=== PATIENT | male | born 1980 ===

== ENCOUNTER 2024-12-18 02:22 | Observation (INO) | payer BC ==
[2024-12-18] MEDS: Aluminum Hydroxide/Magnesium Hydroxide/Simethicone Susp 30 ML Cup PO ONE ×2 (02:38→03:23)
[2024-12-18] MEDS: Lidocaine 2% Viscous Solution 15 ML UD PO ONE ×2 (02:38→03:22)
[2024-12-18] MEDS: Sodium Chloride 0.9% 10 ML Syringe FLUSH PRN (03:11)
[2024-12-18] MEDS: Ondansetron 4 MG/2 ML SDV IVPUSH ONE (03:11)
[2024-12-18 03:28] LABS: BASOPHILS ABSOLUTE AUTO 0.05 K/uL (0.00-0.20); BASOPHILS PERCENT AUTO 0.5 % (0.0-2.0); EOSINOPHILS ABSOLUTE AUTO 0.18 K/uL (0.00-0.50); EOSINOPHILS PERCENT AUTO 1.6 % (0.0-5.0); HEMATOCRIT 42.7 % (39.0-49.0); HEMOGLOBIN 15.1 g/dL (13.1-16.8); IMMATURE GRAN ABSOLUTE AUTO 0.13 10^3/uL (0.00-0.04); IMMATURE GRAN PERCENT AUTO 1.2 % (0.0-0.4); LYMPHOCYTES ABSOLUTE AUTO 2.89 K/uL (0.50-3.50); LYMPHOCYTES PERCENT AUTO 26.4 % (10.0-50.0); MEAN CORPUSCULAR HEMOGLOBIN 28.4 pg (28.2-33.3); MEAN CORPUSCULAR HGB CONC 35.4 g/dL (31.7-36.0); MEAN CORPUSCULAR VOLUME 80.4 fL (84.0-98.0); MONOCYTES PERCENT AUTO 6.4 % (2.0-14.0); NEUTROPHILS ABSOLUTE AUTO 6.99 K/uL (1.40-7.00); NEUTROPHILS PERCENT AUTO 63.9 % (45.0-80.0); PLATELET COUNT,PLT 270 K/uL (150-350); RED BLOOD CELL COUNT 5.31 M/uL (4.33-5.41); RED CELL DISTRIBUTION WIDTH 12.3 % (11.2-14.1); WHITE BLOOD CELL COUNT,WBC 10.9 K/uL (4.0-10.2)
[2024-12-18 03:36] LABS: AMYLASE 61 U/L (25-115)
[2024-12-18 03:37] LABS: ANION GAP 13.2 meq/L (7-15); BLOOD UREA NITROGEN,BUN 11 mg/dL (7-18); CALCIUM 8.8 mg/dL (8.5-10.1); CARBON DIOXIDE,CO2 25.3 mmol/L (21.0-32.0); CHLORIDE,CL 106 mmol/L (98-107); CREATININE 0.83 mg/dL (0.51-1.17); ESTIMATED GFR 111 mL/min (>=60); GLUCOSE RANDOM 130 mg/dL (70-99); LIPASE 159 U/L (16-77); POTASSIUM,K 3.5 mmol/L (3.5-5.1); PROTEIN TOTAL,TP 7.4 g/dL (6.4-8.2); SODIUM,NA 141 mmol/L (136-145)
[2024-12-18 03:38] LABS: ALANINE AMINOTRANSFERASE,ALT 47 U/L (12-78); ALBUMIN 3.7 g/dL (3.4-5.0); ALKALINE PHOSPHATASE 105 IU/L (46-116); ASPARTATE AMNIOTRANSFERASE,AST 23 U/L (15-37); BILIRUBIN TOTAL 0.3 mg/dL (0.2-1.0)
[2024-12-18 03:52] LABS: MAGNESIUM 1.9 mg/dL (1.8-2.4)
[2024-12-18] MEDS: Morphine 2 MG/ML SYRINGE IVPUSH ONE (04:17)
[2024-12-18] MEDS: Morphine 10 MG/ML Syringe IV ONE (04:53)
[2024-12-18] MEDS: Pantoprazole 40 MG Vial IVPUSH ONE (04:54)
[2024-12-18] MEDS ORDERED: Ondansetron 4 MG/2 ML SDV IVPUSH PRN (05:03)
[2024-12-18] MEDS ORDERED: Morphine 2 MG/ML SYRINGE IVPUSH PRN (05:03)
[2024-12-18] MEDS ORDERED: Naloxone 0.4 MG/ML SDV IVPUSH PRN ×2 (05:03→10:49)
[2024-12-18] MEDS: Lactated Ringers 1,000 ML IV ONE (05:29)
[2024-12-18] MEDS: oxyCODONE 5 MG Tab PO PRN (05:52)
[2024-12-18] MEDS: Sucralfate 1 GM Tab PO ONE (07:45)
[2024-12-18] MEDS: fentaNYL 100 MCG/2 ML SDV IVPUSH ONE (07:46)
[2024-12-18] MEDS: cloNIDine 0.1 MG Tab PO ONE (09:34)
[2024-12-18 10:41] LABS: BASOPHILS ABSOLUTE AUTO 0.05 K/uL (0.00-0.20); BASOPHILS PERCENT AUTO 0.3 % (0.0-2.0); EOSINOPHILS ABSOLUTE AUTO 0.01 K/uL (0.00-0.50); EOSINOPHILS PERCENT AUTO 0.1 % (0.0-5.0); HEMATOCRIT 45.4 % (39.0-49.0); HEMOGLOBIN 16.1 g/dL (13.1-16.8); IMMATURE GRAN ABSOLUTE AUTO 0.13 10^3/uL (0.00-0.04); IMMATURE GRAN PERCENT AUTO 0.8 % (0.0-0.4); LYMPHOCYTES ABSOLUTE AUTO 1.99 K/uL (0.50-3.50); LYMPHOCYTES PERCENT AUTO 12.1 % (10.0-50.0); MEAN CORPUSCULAR HEMOGLOBIN 28.5 pg (28.2-33.3); MEAN CORPUSCULAR HGB CONC 35.5 g/dL (31.7-36.0); MEAN CORPUSCULAR VOLUME 80.4 fL (84.0-98.0); MONOCYTES ABSOLUTE AUTO 0.86 K/uL (0.00-1.00); MONOCYTES PERCENT AUTO 5.2 % (2.0-14.0); NEUTROPHILS ABSOLUTE AUTO 13.45 K/uL (1.40-7.00); NEUTROPHILS PERCENT AUTO 81.5 % (45.0-80.0); PLATELET COUNT,PLT 289 K/uL (150-350); RED BLOOD CELL COUNT 5.65 M/uL (4.33-5.41); RED CELL DISTRIBUTION WIDTH 12.2 % (11.2-14.1); WHITE BLOOD CELL COUNT,WBC 16.5 K/uL (4.0-10.2)
[2024-12-18] MEDS: fentaNYL 50 MCG/ML SDV IVPUSH ONE (10:57)
[2024-12-18 10:59] LABS: CALCIUM 8.7 mg/dL (8.5-10.1); CREATININE 0.67 mg/dL (0.51-1.17); EST CRCL DRUG DOSING (CG) 132.91 mL/min
[2024-12-18] MEDS: Iopamidol 612 MG/ML 100 ML Bottle IVPUSH ONE (11:13)
== END 2024-12-18 15:00 | disposition home or self-care (01) ==
LOC: LL.ED 02:22 → LL.MS 04:40 → UNDOADMOB 04:40 → LL.MS 05:03
PROVIDERS: ADMIT Emergency Medicine; ATTEND Emergency Medicine
DX: A08.4 Viral intestinal infection, unspecified (principal); R10.13 Epigastric pain; E66.9 Obesity, unspecified; Z68.30 Body mass index [BMI] 30.0-30.9, adult; Z79.899 Other long term (current) drug therapy
CPT/HCPCS: 36415; 71046; 74176; 74177; 76705; 80048; 80053; 82150; 83013; 83605; 83690; 83735; 84484; 85025; 93005; 93010; 96361; 96374; 96375; 96376; 99285-25; A9270-GY; G0378; J2270; J2405; J2470; J3010; J7120; Q9967